=== PATIENT | male | born 1945 | race African-American/Black ===

== ENCOUNTER 2017-03-02 10:36 | Outpatient (CLI) | payer MEDICARE ==
[~2017-03-02 10:36] MED LIST: ALBUTEROL2.5 MG/3 M HHN; AMICAR500 MG PO; ASPIR-LOW81 MG ORAL; DOXYCYCLINE MO100 MG ORAL; DULERA 100 MCG/13 GM INH; HYDROCODON-ACE1 EA15 ORAL; KEFLEX500 MG ORAL; MECLIZINE HCL25 MG ORAL; NORCO 5-325 TA1 EACH ORAL; STRIBILD TABLE1 EACH PO
[2017-03-02 11:43] LABS: CREATININE 1.3 mg/dL (0.7-1.2)
--- NOTE | 2017-03-02 12:18 | Diagnostic Imaging Report ---
Indication: Cough Comparison: 01/25/13 2 views of the chest obtained. Calcifications are projected over the lungs bilaterally. These are probably parenchymal nodules and likely granulomata. Cardio mediastinal silhouette is normal. The bones appears osteopenic. Impression: No acute disease. Old granulomatous disease suspected
--- NOTE | 2017-03-02 15:09 | Diagnostic Imaging Report ---
Indication: Headache. Night sweats Technique: Contiguous 5 mm thick transaxial imaging of the head obtained in a Siemens Sensation [address] scanner before and after intravenous administration of non-ionic contrast. Soft tissue and bone windows generated. Total Dose length Product (DLP): [address] Dose Index Volume (CTDIvol): 0.15x2, 70.38, 8.11, 105.45, 17.51 mGy Comparison: none Findings: The Size and configuration of the cortical sulci, basal cisterns, and ventricles are within normal limits. There is no mass effect, midline shift, or edema identified. There is no evidence of acute hemorrhage or abnormal intra-axial or extra-axial fluid collections. No abnormal enhancement identified. The bones and soft tissues are unremarkable. Impression: Negative CT of the head done with and without contrast. The CT scanner at [facility] is accredited by the [employer] and the scans are performed using dose optimization techniques as appropriate to a performed exam including Automatic Exposure control.
--- NOTE | 2017-03-02 15:33 | Diagnostic Imaging Report ---
Indication: Neck pain. Night sweats Technique: Continuous helical imaging of the neck was obtained transaxially from the skull base to the upper thoracic spine during intravenous administration of nonionic contrast. 2-D coronal and sagittal reformatted images were obtained. Total Dose length Product (DLP): [address] Dose Index Volume (CTDIvol): 0.15, 0.15, 70.38, 8.1, 105.45, 17.51 mGy Comparison: None Findings: There is no mass or adenopathy identified. The epiglottis and remainder of the supraglottic airway appear symmetric and normal. The larynx and subglottic airway, trachea, unremarkable. Parapharyngeal fat is normal. The glands are unremarkable. The major vessels enhance normally. Minimal calcification noted at the carotid bifurcations. Skull base is unremarkable. The lung apices appear clear. Some calcification of aortic arch noted. Multiple calcific foci noted within the lungs. These may be due to old granulomatous disease. There is narrowing of intervertebral discs and accompanying endplate osteophyte formation. Hypertrophied facet joints also demonstrated. Impression: Essentially negative CT of the neck. Calcific nodule within the lung apices consistent with old granulomatous disease. Mild atherosclerotic vascular disease Cervical spondylosis The CT scanner at [facility] is accredited by the [employer] and the scans are performed using dose optimization techniques as appropriate to a performed exam including Automatic Exposure control.
== END 2017-03-02 12:36 | disposition home or self-care (01) ==
LOC: CAT 10:36
DX: J18.9 Pneumonia, unspecified organism (principal); R51 Headache; M47.892 Other spondylosis, cervical region; I70.90 Unspecified atherosclerosis; M85.80 Other specified disorders of bone density and structure, unspecified site
CPT/HCPCS: 36415; 70470; 70491; 71020; 82565; 84520; Q9967

== ENCOUNTER 2017-03-24 11:44 | Inpatient (IN) | payer MEDICARE ==
[~2017-03-24] VITALS: Ht 190.5 cm; Wt 97.5 kg
[2017-03-24] VITALS (7 sets, daily range): BP systolic 151–168; BP diastolic 69–104
[2017-03-24] MEDS ORDERED: Nitroglycerin Subl 0.4mg tab SL PRN (12:00)
[2017-03-24] MEDS ORDERED: Aspirin Baby 81mg ORAL ONE (12:00)
[2017-03-24 12:41] LABS: BASOPHILS % (AUTO) 1.3 % (0.0-2.0); EOSINOPHILS % (AUTO) 3.8 % (0.0-3.0); MEAN CORPUSCULAR HEMOGLOBIN 30.7 PG (27.0-31.0); MEAN CORPUSCULAR HGB CONC 32.8 G/DL (32.0-36.0); MEAN CORPUSCULAR VOLUME 94 FL (80-99); MONOCYTES % (AUTO) 12.4 % (1.0-10.0); NEUTROPHILS % (AUTO) 60.5 % (45.0-75.0); PLATELET COUNT 172 K/UL (150-450); RED CELL DISTRIBUTION WIDTH 14.3 % (11.6-14.8)
[2017-03-24 12:53] LABS: TROPONIN I < 0.30 ng/mL (<=0.30)
[2017-03-24 12:54] LABS: ALANINE AMINOTRANSFERASE 14 U/L (3-41); ALBUMIN/GLOBULIN RATIO 1.5 (1.0-2.7); ANION GAP 9 (5-15); ASPARTATE AMINO TRANSFERASE 14 U/L (5-40); CALCIUM 8.9 mg/dL (8.6-10.2); CARBON DIOXIDE 28 mEQ/L (20-30); CHLORIDE 105 mEQ/L (98-107); CREATININE 1.1 mg/dL (0.7-1.2); HEMOLYSIS 5; POTASSIUM 4.3 mEQ/L (3.4-4.9); SODIUM 142 mEQ/L (135-145); TOTAL PROTEIN 6.3 g/dL (6.6-8.7)
[2017-03-24 13:05] LABS: CKMB 3.1 ng/mL (< 6.7)
--- NOTE | 2017-03-24 14:49 | Diagnostic Imaging Report ---
Indication: SOB, chest pain Technique: One view of the chest Comparison: 03/02/2017 Findings: The lungs and pleural spaces are clear. Heart size is normal. Calcified granulomata are seen the upper lungs bilaterally. Findings are unchanged Impression: No acute process Evidence of old granulomatous disease, also previously described
[2017-03-24] MEDS ORDERED: GENVOYA TABLET1 EACH PO (15:11)
[2017-03-24] MEDS ORDERED: SYMBICORT 16010.2 G1 IH (15:12)
--- NOTE | 2017-03-24 16:17 | Diagnostic Imaging Report ---
Indication: SOB, chest pain Technique: IV administration nonionic contrast. Arterial phase spiral acquisitions obtained through the chest, abdomen, and pelvis Multiplanar and 3-D reconstructions were generated. Total dose length product 1482 mGycm. CTDIvol(s) 8, 32, 19 mGy. Radiation dose was minimized using automated exposure control Comparison: Chest compared to chest CT of 01/25/2013 Findings: Vascular: The pulmonary arteries are not well opacified, precluding confident exclusion of small distal emboli. No large vessel central pulmonary emboli are evident. No pulmonary arterial or right ventricular dilatation demonstrated. The thoracic aorta is well opacified. The ascending thoracic aorta is ectatic, measuring 3.8 cm in diameter, but no isaura aneurysm or dissection. There is classic branching anatomy of the great neck vessels, which appear unremarkable. No evidence of abdominal aortic aneurysm or dissection. Patent nonstenotic celiac axis, superior mesenteric artery and proximal branches as well as multiple renal arteries seen feeding a horseshoe kidney. The inferior mesenteric artery is also patent and nonstenotic. No evidence of iliac artery aneurysm on either side. No evidence of significant stenosis. Chest: Bullous changes are seen in the upper lobes bilaterally. There is generalized hyperinflation as well. Linear scarring is seen in the right lower lobe. Calcified granulomata are seen in the bilateral upper lobes and in the left lower lobe. Some scarring is seen in the left lung apex. No infiltrates or effusions or congestion. The heart size is normal. No pericardial effusion. No mediastinal or hilar mass or adenopathy. No axillary or chest wall mass or adenopathy. Included portions of the thyroid appear unremarkable. The bones are unremarkable. The esophagus is unremarkable. Abdomen pelvis: The appendix is not demonstrated, but no findings to suggest acute appendicitis are evident. There is colonic diverticulosis. No evidence of diverticulitis. No small bowel distention. No free or loculated intraperitoneal air or fluid. There is a small left inguinal hernia which contains only fat Liver demonstrates multiple cysts, as well as multiple subcentimeter low-attenuation lesions which are too small to characterize. The gallbladder is unremarkable. Bile ducts, pancreas, spleen, adrenals are unremarkable. There is a horseshoe kidney. There is bilateral hydronephrosis, particularly with prominent extrarenal pelvises, normal caliber ureters. No calculi demonstrated. The right moiety demonstrates multiple cysts. No retroperitoneal or mesenteric mass or adenopathy. No pelvic mass or adenopathy. There is unusual edema of the superficial subcutaneous fat of the lower central abdominal and upper pelvic wall. Impression: No definite acute abnormality or findings to explain stated clinical history of shortness of breath and chest pain Suboptimal opacification of the pulmonary arteries. No definite acute central pulmonary embolus, but peripheral emboli cannot be excluded with any confidence COPD changes Evidence of old granulomatous disease Horseshoe kidney. Hydronephrosis of both moieties, appearance of which is suggestive of congenital ureteropelvic junction obstruction Unusual edema of the subcutaneous fat of the lower abdominal and upper pelvic wall Colonic diverticulosis. No evidence of diverticulitis Hepatic cysts. Subcentimeter low-attenuation hepatic lesions, too small to characterize, most likely benign simple cysts. Other findings as noted, including small fat-containing left inguinal hernia The CT scanner at [facility] is accredited by the [employer] and the scans are performed using protocols designed to limit radiation exposure to as low as reasonably achievable to attain images of sufficient resolution adequate for diagnostic evaluation.
--- NOTE | 2017-03-24 16:31 | Emergency Room Report ---
History of Present Illness General Chief Complaint: Chest Pain Source: Patient Present Illness HPI This is an 72-year-old male presented after increased left-sided chest pain. The patient been having pain for approximatelysince last night. The patient had recently been seen by staff air tactical officer. He was noted to have increased sweating. Patient prior history of hypertensionPatient was noted to have recent acute worsening of his reflux. His physician had ordered a CT of abdomen and pelvis Allergies: Coded Allergies: No Known Allergies (Unverified , 11/11/12) Patient History Past Medical History: see triage record Reviewed Nursing Documentation: PMH: Agreed, PSxH: Agreed Nursing Documentation-PMH Hx Cardiac Problems: No - HIV Hx Hypertension: Yes Hx Gastrointestinal Problems: Yes - TURP in 09/2012 Review of Systems All Other Systems: negative except mentioned in HPI Physical Exam Vital Signs Date Time Temp Pulse Resp B/P (MAP) Pulse Ox O2 Delivery O2 Flow Rate FiO2 03/24/17 11:48 97.7 71 20 100 Room Air 03/24/17 12:13 170/105 Sp02 EP Interpretation: reviewed, normal General Appearance: normal inspection, well appearing, no apparent distress, alert, GCS 15, non-toxic Head: atraumatic ENT: normal ENT inspection, hearing grossly normal, normal voice Neck: normal inspection, full range of motion, supple, no bony tend Respiratory: normal inspection, lungs clear, normal breath sounds, no respiratory distress, no retraction, no wheezing Cardiovascular #1: regular rate, rhythm, no edema Gastrointestinal: normal inspection, normal bowel sounds, non tender, soft, no guarding, no hernia Genitourinary: no CVA tenderness Musculoskeletal: normal inspection, back normal, normal range of motion Neurologic: normal inspection, alert, oriented x3, responsive, compensation programs manager III-XII nml as tested, speech normal Psychiatric: normal inspection, judgement/insight normal, mood/affect normal Skin: normal inspection, normal color, no rash Medical Decision Making Diagnostic Impression: Primary Impression: Chest pain Additional Impression: Uncontrolled hypertension ER Course Patient presented for chest pain. Differential diagnosis included but was not limited to acute coronary syndrome, pulmonary embolism, pneumonia, aortic dissection, shingles, pneumothorax, aortic dissection, esophageal rupture, pericarditis. Because of complexity of patient's case laboratory testing and imaging studies were ordered. I laboratory testing was notable for markedly elevated d-dimer. The patient was noted to have uncontrolled hypertension with blood pressure greater than 200. The patient was given blood pressure medications. CT chest abdomen pelvis read by radilogyNo definite acute abnormality or findings to explain stated clinical history of shortness of breath and chest pain Suboptimal opacification of the pulmonary arteries. No definite acute central pulmonary embolus, but peripheral emboli cannot be excluded with any confidence COPD changes Evidence of old granulomatous disease Horseshoe kidney. Hydronephrosis of both moieties, appearance of which is suggestive of congenital ureteropelvic junction obstruction Unusual edema of the subcutaneous fat of the lower abdominal and upper pelvic wall Colonic diverticulosis. No evidence of diverticulitis Hepatic cysts. Subcentimeter low-attenuation hepatic lesions, too small to characterize, most likely benign simple cysts. Other findings as noted, including small fat-containing left inguinal hernia Dr. Jose Villalba was contacted for inpatient management Labs Test 03/24/17 12:00 White Blood Count 5.0 K/UL (4.8-10.8) Red Blood Count 4.10 M/UL (4.70-6.10) Hemoglobin 12.6 G/DL (14.2-18.0) Hematocrit 38.4 % (42.0-52.0) Mean Corpuscular Volume 94 FL (80-99) Mean Corpuscular Hemoglobin 30.7 PG (27.0-31.0) Mean Corpuscular Hemoglobin Concent 32.8 G/DL (32.0-36.0) Red Cell Distribution Width 14.3 % (11.6-14.8) Platelet Count 172 K/UL (150-450) Mean Platelet Volume 8.0 FL (6.5-10.1) Neutrophils (%) (Auto) 60.5 % (45.0-75.0) Lymphocytes (%) (Auto) 22.0 % (20.0-45.0) Monocytes (%) (Auto) 12.4 % (1.0-10.0) Eosinophils (%) (Auto) 3.8 % (0.0-3.0) Basophils (%) (Auto) 1.3 % (0.0-2.0) D-Dimer 5474 ng/mL (<500) Sodium Level 142 mEQ/L (135-145) Potassium Level 4.3 mEQ/L (3.4-4.9) Chloride Level 105 mEQ/L (98-107) Carbon Dioxide Level 28 mEQ/L (20-30) Anion Gap 9 (5-15) Blood Urea Nitrogen 12 mg/dL (7-23) Creatinine 1.1 mg/dL (0.7-1.2) Estimat Glomerular Filtration Rate mL/min (>60) Glucose Level 94 mg/dL (74-106) Calcium Level 8.9 mg/dL (8.6-10.2) Total Bilirubin 0.3 mg/dL (0.0-1.2) Aspartate Amino Transf (AST/SGOT) 14 U/L (5-40) Alanine Aminotransferase (ALT/SGPT) 14 U/L (3-41) Alkaline Phosphatase 47 U/L (40-129) Total Creatine Kinase 175 U/L (38-174) Creatine Kinase MB 3.1 ng/mL (< 6.7) Creatine Kinase MB Relative Index 1.7 Troponin I < 0.30 ng/mL (<=0.30) Pro-B-Type Natriuretic Peptide 81 pg/mL (0-125) Total Protein 6.3 g/dL (6.6-8.7) Albumin 3.8 g/dL (3.5-5.2) Globulin 2.5 g/dL Albumin/Globulin Ratio 1.5 (1.0-2.7) EKG Diagnostic Results Rate: normal Rhythm: NSR ST Segments: no acute changes ASA given to the pt in ED: Yes Rhythm Strip Diag. Results EP Interpretation: yes Rhythm: NSR, no PVC's, no ectopy Last Vital Signs Date Time Temp Pulse Resp B/P (MAP) Pulse Ox O2 Delivery O2 Flow Rate FiO2 03/24/17 14:59 77 20 165/103 100 Room Air 03/24/17 11:48 97.7 Status: unchanged Disposition: ADMITTED INPATIENT Condition: Serious Referrals: NOT CHOSEN IPA/,REFERRING (PCP) Reji Yung Mar 24, 2017 16:31
[2017-03-25] VITALS (7 sets, daily range): BP systolic 127–170; BP diastolic 80–108
[2017-03-25] MEDS ORDERED: VENTOLIN HFA18 GM INH (06:54)
[2017-03-25 07:56] LABS: TROPONIN I < 0.30 ng/mL (<=0.30)
[2017-03-25 08:29] LABS: CHOLESTEROL/HDL RATIO 3.2 (3.3-4.4)
[2017-03-25] MEDS ORDERED: Albuterol 90mcg Inhaler 8gm INH PRN (08:30)
[2017-03-25 08:40] LABS: THYROID STIMULATING HORMONE 0.974 uIU/mL (0.300-4.500)
[2017-03-25] MEDS: Heparin 5000 units/ml inj SUBQ SCH ×2 (09:00→21:02)
[2017-03-25] MEDS ORDERED: Aspirin Baby 81mg ORAL SCH (09:00)
[2017-03-25] MEDS: Lisinopril 20mg tab ORAL SCH (09:30)
--- NOTE | 2017-03-25 11:30 | Consultation ---
DATE OF CONSULTATION: 03/24/2017 CARDIOLOGY CONSULTATION CONSULTING PHYSICIAN: Jose Villalba M.D. REQUESTING PHYSICIAN: Jori Ramirez M.D. REASON FOR CONSULTATION: Chest pain and hypertensive urgency. History Of Present Illness: This is a 72-year-old male. He denies any known history of prior cardiovascular disease. In fact, his only past history is HIV/AIDS, which he has had for 37 years and remains without any complications. The patient was seen by his client technical professional for a regular glaucoma screening and told that his blood pressure was high today, but he has not been informed of previous such episodes. He came to the emergency room. Concomitantly, he noted chest pressure last night that was of concern and also had precipitated this emergency room visit. Past Medical History: HIV/AIDS and BPH, status post transurethral resection of prostate. MEDICATIONS: Prior to admission, reviewed and reconciled. ALLERGIES: None. FAMILY HISTORY: Noncontributory. SOCIAL HISTORY: Negative for smoking, alcohol, or substance abuse. Review Of Systems: No fevers or chills. No cough or sputum production. No history of blood clots in the legs. No history of seizure or stroke. No history of diabetes or thyroid disorder. No lipid abnormality. No history of prostate cancer. No change in bowel habits. PHYSICAL EXAMINATION: Vital Signs: Blood pressure ranging from 159/69 to 167/101, heart rate 66, respiratory rate 20, and afebrile. HEENT: Conjunctivae are pink. Sclerae are anicteric. Oropharynx clear. NECK: Supple. Jugular venous pressure normal. No bruits. LUNGS: Clear. CARDIAC: Regular. Normal S1 and S2 with no murmur, rub, or gallop. ABDOMEN: Soft and nontender. EXTREMITIES: No edema. NEUROLOGIC: Nonfocal. Laboratory And Diagnostic Data: Abdominal and chest CT angiogram, negative pulmonary embolus, positive for colonic diverticulosis, edema of the abdominal wall fat, horseshoe kidney with hydronephrosis, possible granulomatous disease. EKG reveals sinus rhythm with no acute abnormalities. Troponin negative. IMPRESSION: 1. Hypertensive urgency. 2. Acute coronary syndrome. 3. Human immunodeficiency virus/acquired immunodeficiency syndrome. PLAN: 1. Cardiac monitoring. 2. Antiplatelet therapy. 3. Serial troponins. 4. Check lipid panel. 5. Titrate antihypertensive regimen for blood pressure control. 6. Check echocardiogram. 7. Noninvasive assessment of coronary flow reserve to follow once blood pressure is adequately controlled. Jose Villalba M.D. DR: JERICA JOB#: [id number] CC:
[2017-03-25] MEDS ORDERED: Xarelto 15mg tab ORAL SCH (18:00)
--- NOTE | 2017-03-25 18:00 | History and Physical Report ---
DATE OF ADMISSION: 03/24/2017 CHIEF COMPLAINT: Chest pain. History of Present Illness: The patient is a 72-year-old male. He has a history of bronchitis, HIV, and hypertensive heart disease presented to the emergency room after he developed chest pain while driving. According to the patient, he was previously diagnosed as being hypertensive. He last saw his groundskeeper several years ago, but did not follow up. He stopped taking his blood pressure medicine. He states that he has seen his other doctors and been told his blood pressure was normal. Several weeks ago, he followed up with tarper, he noted that the patient's blood pressure was high and he recommended that he go see his groundskeeper. On the day of admission here, he was driving and had substernal chest pain that was sharp, radiating to leg. There was no shortness of breath, diaphoresis. No nausea. No vomiting. On evaluation in the emergency room, the chest pain had improved, but the patient was noted to be markedly hypertensive. Initial cardiac enzymes and EKG were unremarkable but in light of the patient's uncontrolled hypertension, he is now admitted for further evaluation and care. PAST MEDICAL HISTORY: As above. PAST SURGICAL HISTORY: TURP. CURRENT MEDICATIONS: Reconciled and reviewed. ALLERGIES: None. Social History: The patient smokes marijuana, drinks socially, and no drugs. FAMILY HISTORY: None. Review Of Systems: General: No fever or chills. HEENT: No headaches or visual changes. Cardiopulmonary: Positive for chest pain. No shortness of breath. Gastrointestinal: No nausea or vomiting. Genitourinary: No urgency or frequency. Positive history of TURP. Musculoskeletal: No joint pain or swelling. Neurologic: No evidence of seizures. PHYSICAL EXAMINATION: Vital Signs: Temperature 97.3 degrees, pulse 85, respirations 20, and blood pressure 170/108. GENERAL: The patient is well developed, no apparent distress. NECK: Supple without carotid bruits. HEART: Regular rate and rhythm. LUNGS: Clear. ABDOMEN: Soft, nontender and nondistended. EXTREMITIES: Without clubbing, cyanosis, or edema. Laboratory And Diagnostic Data: Sodium 142, potassium 4.3, and creatinine 1.1. Troponin was negative. White count 5, hemoglobin 12, and hematocrit 38. D-dimer of 5474. Assessment: This is a pleasant male admitted with complaints of chest pain. 1. Chest pain, likely noncardiac. 2. Hypertension, hypertensive urgency. 3. Human immunodeficiency virus. 4. Chronic obstructive pulmonary disease. 5. History of benign prostatic hypertrophy. Plan: Serial enzymes. Titrate blood pressure medication regimen. Continue p.r.n. respiratory treatments. Cardiology followup. Jori Ramirez M.D. DR: HAYLEE JOB#: [id number] CC:
[2017-03-26] VITALS: BP 141/88
[2017-03-26 04:00] VITALS: BP 156/100
[2017-03-26 08:00] VITALS: BP 148/98
[2017-03-26] MEDS ORDERED: Eliquis 2.5mg tablet ORAL SCH (09:00)
[2017-03-26 09:44] VITALS: BP 148/98
[2017-03-26] MEDS: Lisinopril 20mg tab ORAL SCH (09:44)
--- NOTE | 2017-03-26 12:11 | Diagnostic Imaging Report ---
APPROVED REPORT CPT Code: 45845 Present Symptoms Comments: Chest pain Leg pain RIGHT LEG: Venous imaging reveals acute thrombus in the distal popliteal vein. Remainder of the deep venous system within normal limits. No evidence of thrombus in the common femoral, superficial femoral and calf veins. Greater saphenous vein also within normal limits. LEFT LEG: Venous imaging reveals a patent deep venous system. There is no evidence of thrombus within the femoral, popliteal or tibial segments. The greater saphenous vein is also within normal limits. Doppler indicates normal spontaneous flow within these segment. REYMUNDO Frazier was notified of abnormal results at 1210 hours.
--- NOTE | 2017-03-26 15:00 | Progress Note ---
DATE: 03/25/2017 CARDIOLOGY PROGRESS NOTE Subjective: The patient has no chest pain. No shortness of breath. CT angio of the chest was negative for pulmonary embolus. Venous duplex was positive for right popliteal DVT. The patient now recalls a left calf DVT several years ago and being treated with Eliquis for a few months. OBJECTIVE: Vital Signs: Blood pressure 149/92, pulse 60, respirations 20, and afebrile. NECK: Supple. LUNGS: Clear. CARDIAC: Regular. Normal S1 and S2. ABDOMEN: Soft. EXTREMITIES: No edema. IMPRESSION: 1. Chest pain and shortness of breath likely due to pulmonary embolus or despite negative CT angiogram, which may miss centraladvanced. The patient has a prior history of DVT and now an acute one on the right side. 2. Hypertension, elevated and improved. PLAN: 1. Continue amlodipine. 2. Initiate full anticoagulation with apixaban. 3. Discontinue aspirin. 4. Discontinue anti-platelet therapy to decrease bleeding risk. 5. Review echocardiogram. 6. Consider discharge with no signs of pulmonary hypertension. Jose Villalba M.D. DR: JL JOB#: [id number] CC:
--- NOTE | 2017-03-27 00:30 | Progress Note ---
DATE: 03/26/2017 CARDIOLOGY PROGRESS NOTE Subjective: The patient has no chest pain or shortness of breath. He is on anticoagulation with apixaban. OBJECTIVE: Vital Signs: Blood pressure 156/100, pulse 59, respirations 21, and afebrile. NECK: Supple. LUNGS: Clear. CARDIAC: Regular. Normal S1 and S2 with a fourth heart sound. ABDOMEN: Soft. EXTREMITIES: No edema. Diagnostic Data: Echocardiogram reviewed and negative for pulmonary hypertension. No signs of acute right heart insufficiency. IMPRESSION: 1. Acute deep vein thrombosis, possible peripheral pulmonary embolus. 2. Hypertensive urgency, slowly improving. 3. Human immunodeficiency virus/acquired immunodeficiency syndrome. PLAN: 1. Continue full anticoagulation. 2. Outpatient titration of antihypertensive regimen. 3. Continue HIV medications without change. Jose Villalba M.D. DR: JL JOB#: [id number] CC:
--- NOTE | 2017-03-27 06:00 | Discharge Summary ---
DATE OF ADMISSION: 03/24/2017 DATE OF DISCHARGE: 03/26/2017 ADMISSION DIAGNOSES: 1. Hypertensive urgency. 2. Unstable angina. DISCHARGE DIAGNOSES: 1. Hypertensive urgency. 2. Unstable angina. Hospital Course: The patient is a pleasant male, who has history of hypertension, HIV, and BPH, who was admitted with complaints of chest pain. He was ruled out for [place] with serial enzymes and EKGs. He had a venous duplex that revealed acute thrombus in the distal popliteal vein of the right leg. The patient was started on Xarelto. He otherwise remained chest pain free. CT scan of the chest showed no evidence of PE. On discharge, the patient was stable. He will be discharged on anticoagulation with Xarelto as well as antihypertensives. He will follow up with either us in a week or his PMD. Jori Ramirez M.D. DR: Funmilayo JOB#: [id number] CC:
--- NOTE | 2017-03-27 10:34 | Cardiology Report ---
APPROVED REPORT EXAM: Two-dimensional and M-mode echocardiogram with Doppler and color Doppler. INDICATION Hypertension/HCVD M-Mode DIMENSIONS IVSd1.1 (0.7-1.1cm)Left Atrium (MM)4.2 (1.6-4.0cm) LVDd5.3 (3.5-5.6cm)Aortic Root3.6 (2.0-3.7cm) PWd1.1 (0.7-1.1cm)Aortic Cusp Exc.1.8 (1.5-2.0cm) LVDs4.1 (2.5-4.0cm) PWs1.4 cm Normal left ventricular chamber size. Global left ventricular hypokinesis. Left ventricular ejection fraction estimated to be 50 %. Study quality precludes accurate assessment of regional wall motion. Mild left ventricular hypertrophy by 2-D. No evidence of pericardial effusion. All other cardiac chamber sizes are within normal limits. Focal aortic valve sclerosis with adequate cusp excursion. Thickened mitral valve leaflets with normal excursion. Mitral annulus and aortic root calcification. Pulmonic valve not well visualized. Normal tricuspid valve structure. IVC at normal size with physiologic collapse. A color flow and spectral Doppler study was performed and revealed: Mild mitral regurgitation. Mitral diastolic velocities suggest reduced left ventricular relaxation c/w mild LV diastolic dysfunction (Grade I). Mild tricuspid regurgitation. Tricuspid systolic velocities suggests peak right ventricular systolic pressure of 27 mmHg.
--- NOTE | 2017-04-03 02:12 | Cardiology Report ---
APPROVED REPORT EKG Measurement Heart [id number] Normal sinus rhythm Incomplete right bundle branch block Left anterior fascicular block Abnormal ECG
== END 2017-03-26 11:44 | disposition home or self-care (01) | DRG 304 ==
LOC: EMR 12:16 → 2E 14:02 → EDBEDREQ 17:23 → 2E 20:30
DX: I16.0 Hypertensive urgency (principal); B20 Human immunodeficiency virus [HIV] disease; I82.431 Acute embolism and thrombosis of right popliteal vein; I24.9 Acute ischemic heart disease, unspecified; I11.9 Hypertensive heart disease without heart failure; F12.90 Cannabis use, unspecified, uncomplicated; J44.9 Chronic obstructive pulmonary disease, unspecified
CPT/HCPCS: 36415; 71010; 71275; 74174; 80053; 80061; 82550; 82553; 83880; 84443; 84484; 85025; 85379; 93005; 93306; 93970; 99285